=== PATIENT | male | born 1980 | race Caucasian/White ===

== ENCOUNTER 2018-01-24 10:22 | Observation (INO) | payer BC, OTHER ==
[2018-01-24] MEDS ORDERED: Aspirin 81 MG Tab.Chew PO ONE (10:26)
[2018-01-24] MEDS ORDERED: Nitroglycerin 0.4 MG Tab.SL SL PRN (10:26)
--- NOTE | 2018-01-24 10:33 | EDM.PDOC ---
ED HPI GENERAL MEDICAL PROBLEM - General Chief Complaint: Chest Pain Stated Complaint: CHEST PAIN Time Seen by Provider: 01/24/18 10:33 Source of Information: Reports: Patient History Limitations: Reports: No Limitations - History of Present Illness INITIAL COMMENTS - FREE TEXT/NARRATIVE: HISTORY AND PHYSICAL: History of present illness: Patient is a 37-year-old male who presents to the emergency room today with complaints of midsternal chest pain 2 days. He states that nothing improves or makes the pain worse. He does state that it is intermittent and describes it as a sharp pain. Has had some intermittent shortness of breath but states he has been getting over a cold. Has no personal history of heart disease. No family history of heart disease. He denies any fever, chills, abdominal pain, nausea, vomiting, diarrhea or constipation. Review of systems: As per history of present illness and below otherwise all systems reviewed and negative. Past medical history: As per history of present illness and as reviewed below otherwise noncontributory. Surgical history: As per history of present illness and as reviewed below otherwise noncontributory. Social history: No reported history of drug or alcohol abuse. Family history: As per history of present illness and as reviewed below otherwise noncontributory. Physical exam: Gen.: Well-developed and well-nourished 37-year-old male. Alert and oriented. Nontoxic appearing and in no acute distress. HEENT: Atraumatic, normocephalic, pupils reactive, negative for conjunctival pallor or scleral icterus, mucous membranes moist, throat clear, neck supple, nontender, trachea midline. Lungs: Clear to auscultation, breath sounds equal bilaterally, chest nontender. Heart: S1S2, regular rate and rhythm Abdomen: Soft, nondistended, obese, nontender. Negative for masses or hepatosplenomegaly. Negative for costovertebral tenderness. Pelvis: Stable nontender. Genitourinary: Deferred. Rectal: Deferred. Extremities: Atraumatic, negative for cords or calf pain. Neurovascular unremarkable. Neuro: Awake, alert, oriented. Cranial nerves II through XII unremarkable. Cerebellum unremarkable. Motor and sensory unremarkable throughout. Exam nonfocal. Patient reports that he is currently pain-free. Vital signs are stable and have been reviewed by me. Cardiac workup is in progress. All labs are normal. EKG is NSR. Chest x-ray shows no signs of pneumonia or infiltrate. Patient was offered admission which she is agreeable to. The hospitalist was consulted on this case. He will be admitted for chest pain rule out [place], on telemetry. Diagnostics: CBC, CMP, troponin, EKG, one view chest Therapeutics: Aspirin, nitroglycerin Impression: Chest Pain Plan: Observation admission to [facility] with telemetry Definitive disposition and diagnosis as appropriate pending reevaluation and review of above. Mid-Sternal Chest Pain Score (Numeric/FACES): 2 Middle Chest Pain Score (Numeric/FACES): 0 - Related Data Allergies Allergy/AdvReac Type Severity Reaction Status Date / Time No Known Allergies Allergy Verified 01/24/18 10:45 Home Meds: Home Meds Albuterol [Proventil HFA] 2 puff INH Q4H PRN 04/13/16 [History] FLUoxetine HCl [Fluoxetine] 20 mg PO QAM 05/24/16 [History] Fluticasone/Vilanterol [Breo Ellipta 100-25 MCG Inhalation Kit] 1 inhalation INH QAM 05/24/16 [History] Past Medical History HEENT History: Reports: None Cardiovascular History: Reports: None Respiratory History: Reports: Asthma Gastrointestinal History: Reports: None Genitourinary History: Reports: None Musculoskeletal History: Reports: None Neurological History: Reports: None Psychiatric History: Reports: None Endocrine/Metabolic History: Reports: Obesity/BMI 30+ Hematologic History: Reports: None Immunologic History: Reports: None Oncologic (Cancer) History: Reports: None Dermatologic History: Reports: None - Infectious Disease History Infectious Disease History: Reports: Chicken Pox - Past Surgical History HEENT Surgical History: Reports: Naso-Sinus Surgery Social & Family History - Family History Family Medical History: Noncontributory - Tobacco Use Smoking Status *Q: Never Smoker Second Hand Smoke Exposure: No - Alcohol Use Days Per Week of Alcohol Use: 1 Number of Drinks Per Day: 1 Total Drinks Per Week: 1 - Recreational Drug Use Recreational Drug Use: No ED ROS GENERAL - Review of Systems Review Of Systems: ROS reveals no pertinent complaints other than HPI. ED EXAM, GENERAL - Physical Exam Exam: See Below (See dictation) EKG INTERPRETATION EKG Date: 01/24/18 Time: 10:32 Rhythm: NSR Rate (Beats/Min): 66 Comparison: NA - No Prior EKG Course - Vital Signs Last Recorded V/S: Last Vital Signs Temp 96.8 F 01/24/18 13:35 Pulse 66 01/24/18 13:35 Resp 16 01/24/18 13:35 BP 142/75 H 01/24/18 13:35 Pulse Ox 97 01/24/18 13:35 - Orders/Labs/Meds Orders: Active Orders 24 hr Category Date Time Status Admission Status [Patient Status] [ADT] Stat ADT 01/24/18 12:17 Active Nitroglycerin [Nitrostat] Med 01/24/18 10:26 Active 0.4 mg SL Q5M PRN Medication Orders Acetaminophen (Tylenol) 650 mg PO Q4H PRN PRN Reason: Pain (mild 1-3) Albuterol (Ventolin Hfa) 0 gm INH Q4H PRN PRN Reason: Shortness of Breath Aspirin (Aspirin) 81 mg PO DAILY [facility] Enoxaparin Sodium (Lovenox) 40 mg SUBCUT Q24H KEN Last Admin: 01/24/18 14:17 Dose: 40 mg Fluoxetine HCl (Prozac) 10 mg PO DAILY [facility] Nitroglycerin (Nitrostat) 0.4 mg SL Q5M PRN PRN Reason: Chest Pain Last Admin: 01/24/18 10:36 Dose: 0.4 mg Ondansetron HCl (Zofran) 4 mg IVPUSH Q4H PRN PRN Reason: Nausea Fluticasone/ (Vilanterol Inhaler) 1 each INH DAILY [facility] Sodium Chloride (Saline Flush) 2.5 ml FLUSH ASDIRECTED PRN PRN Reason: Keep Vein Open Labs: Laboratory Tests 01/24/18 01/24/18 01/24/18 Range/Units 10:30 10:30 10:30 WBC 7.53 (4.0-11.0) K/uL RBC 5.01 (4.50-5.90) M/uL Hgb 13.6 (13.0-17.0) g/dL Hct 42.8 (38.0-50.0) % MCV 85.4 (80.0-98.0) fL MCH 27.1 (27.0-32.0) pg MCHC 31.8 (31.0-37.0) g/dL RDW Std Deviation 43.4 (28.0-62.0) fl RDW Coeff of Johana 14 (11.0-15.0) % Plt Count 255 (150-400) K/uL MPV 9.50 (7.40-12.00) fL Neut % (Auto) 66.3 (48.0-80.0) % Lymph % (Auto) 17.4 (16.0-40.0) % Monona % (Auto) 10.0 (0.0-15.0) % Eos % (Auto) 5.8 (0.0-7.0) % Baso % (Auto) 0.5 (0.0-1.5) % Neut # (Auto) 5.0 (1.4-5.7) K/uL Lymph # (Auto) 1.3 (0.6-2.4) K/uL Monona # (Auto) 0.8 (0.0-0.8) K/uL Eos # (Auto) 0.4 (0.0-0.7) K/uL Baso # (Auto) 0.0 (0.0-0.1) K/uL Nucleated RBC % 0.0 /100WBC Nucleated RBCs # 0 K/uL Sodium 139 (136-148) mmol/L Potassium 4.0 (3.5-5.1) mmol/L Chloride 103 (98-107) mmol/L Carbon Dioxide 28.8 (21.0-32.0) mmol/L BUN 16 (7.0-18.0) mg/dL Creatinine 0.8 (0.8-1.3) mg/dL Est Cr Clr Drug Dosing 123.97 mL/min Estimated GFR (MDRD) > 60.0 ml/min Glucose 88 (74-106) mg/dL Hemoglobin A1c (4.5-6.2) % Calcium 9.2 (8.5-10.1) mg/dL Magnesium (1.5-2.0) mg/dL Total Bilirubin 0.3 (0.2-1.0) mg/dL AST 29 (15-37) IU/L ALT 34 (14-63) IU/L Alkaline Phosphatase 104 (46-116) U/L Troponin I < 0.050 (0.000-0.056) ng/mL Total Protein 8.0 (6.4-8.2) g/dL Albumin 3.9 (3.4-5.0) g/dL Globulin 4.1 H (2.0-3.5) g/dL Albumin/Globulin Ratio 1.0 L (1.3-2.8) Triglycerides 80 (0-200) mg/dL Cholesterol 185 (50-200) mg/dL LDL Cholesterol, Calc 115 (60-180) mg/dL VLDL Cholesterol 16 (5-55) mg/dL HDL Cholesterol 54 (40-60) mg/dL Cholesterol/HDL Ratio 3.4 (3.3-6.0) Free T4 (0.76-1.46) ng/dL TSH 3rd Generation (0.36-3.74) uIU/mL 01/24/18 01/24/18 01/24/18 Range/Units 10:30 10:30 10:30 WBC (4.0-11.0) K/uL RBC (4.50-5.90) M/uL Hgb (13.0-17.0) g/dL Hct (38.0-50.0) % MCV (80.0-98.0) fL MCH (27.0-32.0) pg MCHC (31.0-37.0) g/dL RDW Std Deviation (28.0-62.0) fl RDW Coeff of Johana (11.0-15.0) % Plt Count (150-400) K/uL MPV (7.40-12.00) fL Neut % (Auto) (48.0-80.0) % Lymph % (Auto) (16.0-40.0) % Monona % (Auto) (0.0-15.0) % Eos % (Auto) (0.0-7.0) % Baso % (Auto) (0.0-1.5) % Neut # (Auto) (1.4-5.7) K/uL Lymph # (Auto) (0.6-2.4) K/uL Monona # (Auto) (0.0-0.8) K/uL Eos # (Auto) (0.0-0.7) K/uL Baso # (Auto) (0.0-0.1) K/uL Nucleated RBC % /100WBC Nucleated RBCs # K/uL Sodium (136-148) mmol/L Potassium (3.5-5.1) mmol/L Chloride (98-107) mmol/L Carbon Dioxide (21.0-32.0) mmol/L BUN (7.0-18.0) mg/dL Creatinine (0.8-1.3) mg/dL Est Cr Clr Drug Dosing mL/min Estimated GFR (MDRD) ml/min Glucose (74-106) mg/dL Hemoglobin A1c 5.6 (4.5-6.2) % Calcium (8.5-10.1) mg/dL Magnesium 1.5 (1.5-2.0) mg/dL Total Bilirubin (0.2-1.0) mg/dL AST (15-37) IU/L ALT (14-63) IU/L Alkaline Phosphatase (46-116) U/L Troponin I (0.000-0.056) ng/mL Total Protein (6.4-8.2) g/dL Albumin (3.4-5.0) g/dL Globulin (2.0-3.5) g/dL Albumin/Globulin Ratio (1.3-2.8) Triglycerides (0-200) mg/dL Cholesterol (50-200) mg/dL LDL Cholesterol, Calc (60-180) mg/dL VLDL Cholesterol (5-55) mg/dL HDL Cholesterol (40-60) mg/dL Cholesterol/HDL Ratio (3.3-6.0) Free T4 (0.76-1.46) ng/dL TSH 3rd Generation 5.91 H (0.36-3.74) uIU/mL 01/24/18 Range/Units 10:30 WBC (4.0-11.0) K/uL RBC (4.50-5.90) M/uL Hgb (13.0-17.0) g/dL Hct (38.0-50.0) % MCV (80.0-98.0) fL MCH (27.0-32.0) pg MCHC (31.0-37.0) g/dL RDW Std Deviation (28.0-62.0) fl RDW Coeff of Johana (11.0-15.0) % Plt Count (150-400) K/uL MPV (7.40-12.00) fL Neut % (Auto) (48.0-80.0) % Lymph % (Auto) (16.0-40.0) % Mon[place] % (Auto) (0.0-15.0) % Eos % (Auto) (0.0-7.0) % Baso % (Auto) (0.0-1.5) % Neut # (Auto) (1.4-5.7) K/uL Lymph # (Auto) (0.6-2.4) K/uL Monona # (Auto) (0.0-0.8) K/uL Eos # (Auto) (0.0-0.7) K/uL Baso # (Auto) (0.0-0.1) K/uL Nucleated RBC % /100WBC Nucleated RBCs # K/uL Sodium (136-148) mmol/L Potassium (3.5-5.1) mmol/L Chloride (98-107) mmol/L Carbon Dioxide (21.0-32.0) mmol/L BUN (7.0-18.0) mg/dL Creatinine (0.8-1.3) mg/dL Est Cr Clr Drug Dosing mL/min Estimated GFR (MDRD) ml/min Glucose (74-106) mg/dL Hemoglobin A1c (4.5-6.2) % Calcium (8.5-10.1) mg/dL Magnesium (1.5-2.0) mg/dL Total Bilirubin (0.2-1.0) mg/dL AST (15-37) IU/L ALT (14-63) IU/L Alkaline Phosphatase (46-116) U/L Troponin I (0.000-0.056) ng/mL Total Protein (6.4-8.2) g/dL Albumin (3.4-5.0) g/dL Globulin (2.0-3.5) g/dL Albumin/Globulin Ratio (1.3-2.8) Triglycerides (0-200) mg/dL Cholesterol (50-200) mg/dL LDL Cholesterol, Calc (60-180) mg/dL VLDL Cholesterol (5-55) mg/dL HDL Cholesterol (40-60) mg/dL Cholesterol/HDL Ratio (3.3-6.0) Free T4 0.93 (0.76-1.46) ng/dL TSH 3rd Generation (0.36-3.74) uIU/mL Meds: Medications Generic Name Dose Route Start Last Admin Trade Name Freq PRN Reason Stop Dose Admin Acetaminophen 650 mg 01/24/18 13:26 Tylenol PO Q4H PRN Pain (mild 1-3) Albuterol 0 gm 01/24/18 13:28 Ventolin Hfa INH Q4H PRN Shortness of Breath Aspirin 81 mg 01/25/18 09:00 Aspirin PO DAILY KEN Enoxaparin Sodium 40 mg 01/24/18 14:00 01/24/18 14:17 Lovenox SUBCUT 40 mg Q24H KEN Administration Fluoxetine HCl 10 mg 01/25/18 09:00 Prozac PO DAILY KEN Nitroglycerin 0.4 mg 01/24/18 10:26 01/24/18 10:36 Nitrostat SL 0.4 mg Q5M PRN Administration Chest Pain Ondansetron HCl 4 mg 01/24/18 13:26 Zofran IVPUSH Q4H PRN Nausea Fluticasone/ 1 each 01/25/18 09:00 Vilanterol Inhaler INH DAILY KEN Sodium Chloride 2.5 ml 01/24/18 13:26 Saline Flush FLUSH ASDIRECTED PRN Keep Vein Open Discontinued Medications Generic Name Dose Route Start Last Admin Trade Name Freq PRN Reason Stop Dose Admin Aspirin 324 mg 01/24/18 10:26 01/24/18 10:34 Aspirin PO 01/24/18 10:27 324 mg ONETIME ONE Administration Departure - Departure Time of Disposition: 13:50 Disposition: Refer to Observation Clinical Impression: Chest pain, rule out acute myocardial infarction - My Orders Last 24 Hours: My Active Orders 01/24/18 10:26 Nitroglycerin [Nitrostat] 0.4 mg SL Q5M PRN 01/24/18 12:17 Admission Status [Patient Status] [ADT] Stat - Assessment/Plan Last 24 Hours: My Active Orders 01/24/18 10:26 Nitroglycerin [Nitrostat] 0.4 mg SL Q5M PRN 01/24/18 12:17 Admission Status [Patient Status] [ADT] Stat
[2018-01-24 11:26] LABS: CHLORIDE,CL 103 mmol/L (98-107); SODIUM,NA 139 mmol/L (136-148)
--- NOTE | 2018-01-24 11:26 | CR ---
EXAMINATION: Portable chest radiograph. HISTORY: Chest pain. FINDINGS: The trachea is midline. The cardiomediastinal silhouette is within normal limits. No pulmonary infilt rates, effusions or pneumothorax. Osseous structures appear unremarkable. IMPRESSION: No acute cardiopulmonary process.
--- NOTE | 2018-01-24 13:25 | PCM.HP ---
H&P History of Present Illness - General Date of Service: 01/24/18 Admit Problem/Dx: Chest pain Source of Information: Patient History Limitations: Reports: No Limitations - History of Present Illness Initial Comments - Free Text/Narative: This 37 yao old male with pmh of obesity, asthma, and anxiety presented to the ED today with concerns of 2 days of intermittent midsternal chest pain which is sharp, achy in nature, "like a pulled muscle" with associated dyspnea and heart rate alerts on his iWatch with rates in 140s and some flushing. He reports at these times he is just sitting in his chair with no activity. He has not noticed any of these symptoms with activity. Since the update to his watch with the high/low heart rate alert came out in November he has had 6-7 similar episodes. Nothing helps the pain and nothing seems to make it worse. He denies nausea, vomiting, abdominal pain or urinary symptoms. No black or bloody BMs, no edema. Is having so sinus congestion and rhinitis which has started that last few days. "I feel like I am getting a cold." No cough or fevers or sore throat. He has no family history of CAD or arrhythmias that he is aware of and no known personal history of cardiac disease. He quit chewing and smoking approximately 4 years ago, rarely uses alcohol and no recreational drug use. He has been attempting to lose weight and has lost approximately 10 pounds in the last 1-2 months. He was congratulated on this. In the ED labwork all WNL. A1c 5.6 and Lipid panel revealed Triglycerides 80, Total 185, LDL 115, and HDL 56. CXR negative. EKG SR rates 66 with no acute ischemic changes. He was treated with 1 dose nitro and ASA 324 mg in the ED. Currently chest pain free. He will be admitted for chest pain rule out ACS. PCP, Dr Montenegro. Mid-Sternal Chest Pain Score (Numeric/FACES): 2 Middle Chest Pain Score (Numeric/FACES): 0 - Related Data Allergies/Adverse Reactions: Allergies Allergy/AdvReac Type Severity Reaction Status Date / Time No Known Allergies Allergy Verified 01/24/18 10:45 Home Medications: Home Meds Albuterol [Proventil HFA] 2 puff INH Q4H PRN 04/13/16 [History] FLUoxetine HCl [Fluoxetine] 20 mg PO QAM 05/24/16 [History] Fluticasone/Vilanterol [Breo Ellipta 100-25 MCG Inhalation Kit] 1 inhalation INH QAM 05/24/16 [History] Past Medical History HEENT History: Reports: None Cardiovascular History: Reports: None. Denies: Afib, Blood Clots/VTE/DVT, CAD, High Cholesterol, Hypertension, [place] Respiratory History: Reports: Asthma. Denies: Sleep Apnea Gastrointestinal History: Reports: GERD (intermittent, has improved recently.). Denies: GI Bleed Genitourinary History: Reports: None. Denies: Chronic Renal Insuffiency Musculoskeletal History: Reports: None Neurological History: Reports: None. Denies: CVA, TIA Psychiatric History: Reports: Anxiety Endocrine/Metabolic History: Reports: Obesity/BMI 30+. Denies: Diabetes, Type II, Hyperthyroidism, Hypothyroidism Hematologic History: Reports: None Immunologic History: Reports: None Oncologic (Cancer) History: Reports: None Dermatologic History: Reports: None - Infectious Disease History Infectious Disease History: Reports: Chicken Pox - Past Surgical History HEENT Surgical History: Reports: Naso-Sinus Surgery Social & Family History - Family History Family Medical History: Noncontributory - Tobacco Use Smoking Status *Q: Former Smoker Tobacco Use Within Last Twelve Months: Cigarettes, Smokeless Tobacco Used Tobacco, but Quit: Yes Second Hand Smoke Exposure: No - Alcohol Use Days Per Week of Alcohol Use: 1 Number of Drinks Per Day: 1 Total Drinks Per Week: 1 Alcohol Use Frequency: Rarely, Socially - Recreational Drug Use Recreational Drug Use: No - Living Situation & Occupation Living situation: Reports: Occupation: Employed H&P Review of Systems - Review of Systems: Review Of Systems: See Below General: Reports: Fatigue. Denies: Fever, Chills, Decreased Appetite HEENT: Reports: Rhinitis, Sinus Congestion. Denies: Headaches, Post Nasal Drip , Vertigo, Visual Changes Pulmonary: Reports: No Symptoms. Denies: Shortness of Breath, Wheezing, Cough, Sputum Cardiovascular: Reports: Chest Pain (with flushing intermittently), Palpitations. Denies: Edema Gastrointestinal: Reports: No Symptoms. Denies: Abdominal Pain, Black Stool, Bloody Stool, Nausea, Vomiting Genitourinary: Reports: No Symptoms. Denies: Dysuria, Frequency, Burning, Pain Musculoskeletal: Reports: No Symptoms. Denies: Neck Pain, Back Pain Psychiatric: Reports: No Symptoms. Denies: Confusion Neurological: Reports: No Symptoms. Denies: Confusion Immunologic: Reports: No Symptoms Exam - Exam Exam: See Below - Vital Signs Vital Signs: Last Vital Signs Temp 97.6 F 01/24/18 10:39 Pulse 68 01/24/18 13:07 Resp 16 01/24/18 13:07 BP 144/92 H 01/24/18 13:07 Pulse Ox 98 01/24/18 13:07 Weight: 160.118 kg - Exam Quality Assessment: DVT Prophylaxis General: Alert, Oriented, Cooperative, Mild Distress HEENT: Conjunctiva Clear, Normal Nasal Septum, Pupils Reactive, Rhinitis Lungs: Clear to Auscultation, Normal Respiratory Effort Cardiovascular: Regular Rate, Regular Rhythm, Normal S1, Normal S2 GI/Abdominal Exam: Normal Bowel Sounds, Soft, Non-Tender, No Organomegaly, No Distention, No Abnormal Bruit, No Mass, Pelvis Stable, Other (obese abdomen.) Extremities: Normal Inspection, Normal Range of Motion, Non-Tender, No Pedal Edema, Normal Capillary Refill Neuro Extensive - Mental Status: Alert, Oriented x3, Normal Mood/Affect, Normal Cognition Neuro Extensive - Motor, Sensory, Reflexes: CN II-XII Intact, Normal Gait Psychiatric: Alert, Normal Affect, Normal Mood - Patient Data Result Diagrams: 01/24/18 10:30 01/24/18 10:30 EKG INTERPRETATION EKG Date: 01/24/18 Rhythm: NSR Rate (Beats/Min): 66 P-Wave: Present QRS: Normal ST-T: Normal QT: Normal Comparison: NA - No Prior EKG *Q Meaningful Use (ADM) - VTE *Q VTE Criteria *Q: - VTE Risk Assess *Q Each Risk Factor Represents 1 Point: Obesity ( BMI > 25 kg/m2) Total Score 1 Point Risk Factors: 1 Each Risk Factor Represents 2 Points: None Total Score 2 Point Risk Factors: 0 Each Risk Factor Represents 3 Points: None Total Score 3 Point Risk Factors: 0 Each Risk Factor Represents 5 Points: None Total Score 5 Point Risk Factors: 0 Venous Thromboembolism Risk Factor Score *Q: 1 - Stroke *Q Stroke Criteria *Q: - AMI *Q AMI Criteria *Q: - Problem List (1) Chest pain SNOMED Code(s): 86644204 ICD Code: R07.9 - CHEST PAIN, UNSPECIFIED Status: Acute Current Visit: Yes Qualifiers: Chest pain type: unspecified Qualified Code(s): R07.9 - Chest pain, unspecified (2) Palpitations SNOMED Code(s): 63907103 ICD Code: R00.2 - PALPITATIONS Status: Acute Current Visit: Yes (3) Morbid obesity with BMI of 50.0-59.9, adult SNOMED Code(s): 336565288 ICD Code: E66.01 - MORBID (SEVERE) OBESITY DUE TO EXCESS CALORIES; Z68.43 - BODY MASS INDEX (BMI) 50-59.9 , ADULT Status: Chronic Current Visit: Yes (4) Asthma SNOMED Code(s): 556611815 ICD Code: J45.909 - UNSPECIFIED ASTHMA, UNCOMPLICATED Status: Chronic Current Visit: Yes Problem List Initiated/Reviewed/Updated: Yes Orders Last 24hrs: Medication Orders Nitroglycerin (Nitrostat) 0.4 mg SL Q5M PRN PRN Reason: Chest Pain Last Admin: 01/24/18 10:36 Dose: 0.4 mg Assessment/Plan Comment:: This 37 year old male admitted with chest pain and palpitations 1. Chest pain: Will monitor on telemetry and trend troponins to rule out ACS. Currently chest pain free. Lipid panel and A1c WNL. BP elevated 140/80s. will monitor. Not currently treated. 2. Palpitations: Noted on iWatch. Again monitor on telemetry, encouraged to contact nursing if watch shows elevation or he starts having symptoms. ICU notified of possible HR elevations intermittently. Will check TSH and Magnesium. If no events noted here on telemetry may need to order event monitor and have patient follow up with PCP. 3. Asthma: Stable. Continue Breo. 4. Anxiety: Stable recently. Continue Prozac. VTE prophylaxis: Lovenox. Dispo; 1-2 days
[2018-01-24] MEDS ORDERED: Acetaminophen 325 MG Tab PO PRN (13:26)
[2018-01-24] MEDS ORDERED: Ondansetron 4 MG/2 ML SDV IVPUSH PRN (13:26)
[2018-01-24] MEDS ORDERED: Sodium Chloride 0.9% 2.5 ML Syringe FLUSH PRN (13:26)
[2018-01-24] MEDS ORDERED: Albuterol 8 GM Inhaler INH PRN (13:28)
[2018-01-24] MEDS ORDERED: Enoxaparin 40 MG/0.4 ML Syringe SUBCUT SCH (14:00)
[2018-01-25] MEDS ORDERED: Aspirin 81 MG Tab.Chew PO SCH (09:00)
[2018-01-25] MEDS ORDERED: FLUTICASONE/VILANTEROL INHALER INH SCH (09:00)
--- NOTE | 2018-01-25 11:18 | PCM.DCSUM1 ---
Discharge Summary - Hospital Course Brief History: This 37 yao old male with pmh of obesity, asthma, and anxiety presented to the ED today with concerns of 2 days of intermittent midsternal chest pain which is sharp, achy in nature, "like a pulled muscle" with associated dyspnea and heart rate alerts on his iWatch with rates in 140s and some flushing. He reports at these times he is just sitting in his chair with no activity. He has not noticed any of these symptoms with activity. Since the update to his watch with the high/low heart rate alert came out in November he has had 6-7 similar episodes. Nothing helps the pain and nothing seems to make it worse. He denies nausea, vomiting, abdominal pain or urinary symptoms. No black or bloody BMs, no edema. Is having so sinus congestion and rhinitis which has started that last few days. "I feel like I am getting a cold." No cough or fevers or sore throat. He has no family history of CAD or arrhythmias that he is aware of and no known personal history of cardiac disease. He quit chewing and smoking approximately 4 years ago, rarely uses alcohol and no recreational drug use. He has been attempting to lose weight and has lost approximately 10 pounds in the last 1-2 months. He was congratulated on this. In the ED labwork all WNL. A1c 5.6 and Lipid panel revealed Triglycerides 80, Total 185, LDL 115, and HDL 56. CXR negative. EKG SR rates 66 with no acute ischemic changes. He was treated with 1 dose nitro and ASA 324 mg in the ED. Currently chest pain free. He will be admitted for chest pain rule out ACS. PCP, Dr Montenegro. - Discharge Data Discharge Date: 01/25/18 Discharge Disposition: Home, Self-Care 01 Condition: Good - Discharge Diagnosis/Problem(s) (1) Chest pain SNOMED Code(s): 54892062 ICD Code: R07.9 - CHEST PAIN, UNSPECIFIED Status: Acute Current Visit: Yes Qualifiers: Chest pain type: unspecified Qualified Code(s): R07.9 - Chest pain, unspecified (2) Palpitations SNOMED Code(s): 72784666 ICD Code: R00.2 - PALPITATIONS Status: Acute Current Visit: Yes (3) Morbid obesity with BMI of 50.0-59.9, adult SNOMED Code(s): 239148701 ICD Code: E66.01 - MORBID (SEVERE) OBESITY DUE TO EXCESS CALORIES; Z68.43 - BODY MASS INDEX (BMI) 50-59.9 , ADULT Status: Chronic Current Visit: Yes (4) Asthma SNOMED Code(s): 211756789 ICD Code: J45.909 - UNSPECIFIED ASTHMA, UNCOMPLICATED Status: Chronic Current Visit: Yes - Patient Instructions Diet: Regular Diet as Tolerated Activity: As Tolerated, No Strenuous Activities, Rest and Relax Today Driving: May Drive Today Showering/Bathing: May Shower Notify Provider of: Fever Other/Special Instructions: Stress test to be arranged. - Discharge Plan Home Medications: Home Meds Albuterol [Proventil HFA] 2 puff INH Q4H PRN 04/13/16 [History] FLUoxetine HCl [Fluoxetine] 20 mg PO QAM 05/24/16 [History] Fluticasone/Vilanterol [Breo Ellipta 100-25 MCG Inhalation Kit] 1 inhalation INH QAM 05/24/16 [History] Patient Handouts: Nonspecific Chest Pain, [id number] Referrals: Justino Montenegro MD [Physician] - 02/09/18 8:30 am - Discharge Summary/Plan Comment DC Time >30 min.: No Discharge Summary/Plan Comment: Discharge Diagnoses: Atypical chest pain Obesity Asthma Jeb was admitted and ruled out for ACS. Troponins negative and telemetry remained normal throughout the night. No acute ischemic changes noted. Has intermittent R sided chest pain with coughing or sneezing, likely more musculoskeletal in nature. Patient very worried about cardiac disease due to a close friend abruptly dying last year. Will arrange outpatient stress test. Lipid panel and A1c WNL. Blood pressure stable. No tachycardia noted on Iwatch or telemetry. Unable to place event monitor today due to availability. Did speak with Dr Montengero regarding concern and he will follow up with this. Follow up with Dr Montenegro arranged. He is to return to ED or clinic if concerns should arise. - General Info Date of Service: 01/25/18 Admission Dx/Problem (Free Text: Chest pain Subjective Update: No chest pain this morning, small amount when sneezing or coughing. No SOB. Feeling stuffy "I'm getting a cold". No leukocytosis noted and CXR negative. No palpitations overnight. Functional Status: Reports: Pain Controlled, Tolerating Diet, Ambulating, Urinating - Review of Systems General: Reports: No Symptoms. Denies: Fever, Fatigue HEENT: Reports: Sinus Congestion, Rhinitis. Denies: Headaches, Visual Changes Pulmonary: Reports: No Symptoms. Denies: Shortness of Breath, Cough, Sputum Cardiovascular: Reports: No Symptoms. Denies: Chest Pain, Orthopnea, Edema Gastrointestinal: Reports: No Symptoms. Denies: Abdominal Pain, Nausea, Vomiting Genitourinary: Reports: No Symptoms. Denies: Dysuria, Frequency, Burning, Pain Musculoskeletal: Reports: No Symptoms Neurological: Reports: No Symptoms Psychiatric: Reports: No Symptoms - Patient Data Vitals - Most Recent: Last Vital Signs Temp 97.7 F 01/25/18 08:32 Pulse 64 01/25/18 08:32 Resp 16 01/25/18 08:32 BP 122/64 01/25/18 08:32 Pulse Ox 94 L 01/25/18 08:32 Weight - Most Recent: 160.118 kg I&O - Last 24 hours: Intake & Output 01/24/18 01/25/18 01/25/18 22:59 06:59 14:59 Intake Total 118 550 Output Total 600 1050 Balance -482 -500 Lab Results - Last 24 hrs: Laboratory Results - last 24 hr 01/24/18 01/24/18 Range/Units 16:30 22:35 Troponin I < 0.050 < 0.050 (0.000-0.056) ng/mL Med Orders - Current: Current Medications Acetaminophen (Tylenol) 650 mg PO Q4H PRN PRN Reason: Pain (mild 1-3) Albuterol (Ventolin Hfa) 0 gm INH Q4H PRN PRN Reason: Shortness of Breath Aspirin (Aspirin) 81 mg PO DAILY [facility] Last Admin: 01/25/18 09:48 Dose: 81 mg Enoxaparin Sodium (Lovenox) 40 mg SUBCUT Q24H [facility] Last Admin: 01/24/18 14:17 Dose: 40 mg Fluoxetine HCl (Prozac) 10 mg PO DAILY [facility] Last Admin: 01/25/18 09:49 Dose: Not Given Nitroglycerin (Nitrostat) 0.4 mg SL Q5M PRN PRN Reason: Chest Pain Last Admin: 01/24/18 10:36 Dose: 0.4 mg Ondansetron HCl (Zofran) 4 mg IVPUSH Q4H PRN PRN Reason: Nausea Fluticasone/ (Vilanterol Inhaler) 1 each INH DAILY [facility] Last Admin: 01/25/18 09:49 Dose: Not Given Sodium Chloride (Saline Flush) 2.5 ml FLUSH ASDIRECTED PRN PRN Reason: Keep Vein Open Last Admin: 01/25/18 09:50 Dose: 2.5 ml Discontinued Medications Aspirin (Aspirin) 324 mg PO ONETIME ONE Stop: 01/24/18 10:27 Last Admin: 01/24/18 10:34 Dose: 324 mg - Exam General: Reports: Alert, Oriented, Cooperative, No Acute Distress HEENT: Reports: Pupils Equal, Mucous Membr. Moist/[place], Other (sinus congestion noted.) Neck: Reports: Supple. Denies: Lymphadenopathy Lungs: Reports: Clear to Auscultation, Normal Respiratory Effort Cardiovascular: Reports: Regular Rate, Regular Rhythm GI/Abdominal Exam: Normal Bowel Sounds, Soft, Non-Tender, No Organomegaly, No Distention, No Abnormal Bruit, No Mass, Pelvis Stable Extremities: Normal Inspection, Normal Range of Motion, Non-Tender, No Pedal Edema, Normal Capillary Refill Neurological: Reports: No New Focal Deficit Psy/Mental Status: Reports: Alert, Normal Affect, Normal Mood *Q Meaningful Use (DIS) - VTE *Q VTE Criteria *Q: - Stroke *Q Stroke Criteria *Q: - AMI *Q AMI Criteria *Q:
[2018-01-25 11:34] VITALS: BP 131/71
== END 2018-01-25 13:45 | disposition home or self-care (01) ==
LOC: MW.ED 10:22 → MW.MS 13:20
PROVIDERS: ADMIT Family Medicine; ATTEND Family Medicine
DX: R07.89 Other chest pain (principal); R00.2 Palpitations; J45.909 Unspecified asthma, uncomplicated; F41.9 Anxiety disorder, unspecified; E66.01 Morbid (severe) obesity due to excess calories; K21.9 Gastro-esophageal reflux disease without esophagitis; Z79.51 Long term (current) use of inhaled steroids; Z87.891 Personal history of nicotine dependence; Z68.43 Body mass index [BMI] 50.0-59.9, adult
CPT/HCPCS: 36415; 71045; 80053; 80061; 83036; 83735; 84439; 84443; 84484; 85025; 93005; 96372; 99285; A9270; G0378; J1650; 99283

== ENCOUNTER 2020-02-11 20:16 | Emergency (ER) | payer BC, OTHER ==
[2020-02-11] MEDS ORDERED: Morphine 4 MG/ML Syringe IVPUSH ONE (20:32)
[2020-02-11] MEDS ORDERED: Ketorolac 30 MG/ML SDV IVPUSH ONE (20:32)
--- NOTE | 2020-02-11 20:39 | EDM.PDOC ---
ED HPI GENERAL MEDICAL PROBLEM - General Chief Complaint: Abdominal Pain Time Seen by Provider: 02/11/20 20:30 Source of Information: Reports: Patient - History of Present Illness INITIAL COMMENTS - FREE TEXT/NARRATIVE: The patient is a 39-year-old male who presents to the ER secondary to the complaint of right upper quadrant abdominal pain. He states that this started yesterday and was kind of an ache in the epigastric region and has mainly migrated to the right upper quadrant. No fevers or chills, no nausea or vomiting, no diarrhea. He did take some Advil yesterday but he does not think that it helped that much. He is not sure if anything makes it better or worse, he definitely cannot see any association with food. He denies any chest pain, no shortness of breath, no hemoptysis, no dyspnea with exertion, no back pain, no lower abdominal pain or any other acute complaints. abdomen Pain Score (Numeric/FACES): 6 - Related Data Allergies Allergy/AdvReac Type Severity Reaction Status Date / Time No Known Allergies Allergy Verified 02/11/20 20:24 Home Meds: Home Meds Albuterol [Proventil HFA] 2 puff INH Q4H PRN 04/13/16 [History] FLUoxetine HCl [Fluoxetine] 40 mg PO QAM 05/24/16 [History] Fluticasone/Vilanterol [Breo Ellipta 100-25 MCG Inhalation Kit] 1 inhalation INH QAM 05/24/16 [History] Past Medical History HEENT History: Reports: None Cardiovascular History: Reports: None Respiratory History: Reports: Asthma Gastrointestinal History: Reports: None Genitourinary History: Reports: None Musculoskeletal History: Reports: None Neurological History: Reports: None Psychiatric History: Reports: Anxiety, Depression Endocrine/Metabolic History: Reports: Obesity/BMI 30+ Hematologic History: Reports: None Immunologic History: Reports: None Oncologic (Cancer) History: Reports: None Dermatologic History: Reports: None - Infectious Disease History Infectious Disease History: Reports: Chicken Pox - Past Surgical History Head Surgeries/Procedures: Reports: None HEENT Surgical History: Reports: Naso-Sinus Surgery Respiratory Surgical History: Reports: None Endocrine Surgical History: Reports: None Social & Family History - Family History Family Medical History: Noncontributory - Tobacco Use Smoking Status *Q: Never Smoker Second Hand Smoke Exposure: No - Caffeine Use Caffeine Use: Reports: Coffee, Soda - Recreational Drug Use Recreational Drug Use: No - Living Situation & Occupation Living situation: Reports: Occupation: Employed ED ROS GENERAL - Review of Systems Review Of Systems: See Below (Positive for abdominal pain, negative for fevers, negative for chills, negative for nausea vomiting or diarrhea, negative for shortness of breath, all other Positives and pertinent negatives as per HPI. All other pertinent systems were reviewed and are negative) ED EXAM, GI/ABD - Physical Exam Exam: See Below Text/Narrative:: Constitutional: No acute distress, Non-toxic appearance, obese HEENT.: Normocephalic, Atraumatic, PERRL, EOMI, External ears are atraumatic, nares are patent without epistaxis Neck: Normal range of motion, Trachea Midline, No stridor Respiratory.: No respiratory distress, No tachypnea, Lungs Clear to Auscultation bilaterally without wheezes, rales, or rhonchi Cardiovascular.: Regular rate and Rhythm without murmurs, rubs, or gallops, good peripheral perfusion GI: Abdominal exam limited secondary to obesity, subjective right upper quadrant tenderness Genital Urinary: Deferred Musculoskeletal: Good range of motion. All 4 extremities present and atraumatic , no edema Back: Full Range of Motion Skin: Warm, Dry, Color is ethnicity appropriate, No acute rash. Lymphatic: No lymphadenopathy noted Neurological: Alert, Awake and oriented x 3, No focal deficits noted appreciate , GCS 15 Psych: Affect, Judgement, mood normal Course - Vital Signs Text/Narrative:: Differential diagnosis is extensive and includes ascending cholangitis, choledocholithiasis, pancreatitis, peptic ulcer disease, perforated ulcer, diverticulitis, diverticular abscess, hernia, other cardiopulmonary considerations such as right lower lobe pneumonia, pleural effusion, pulmonary infarction and pulmonary embolism and associated pathology was considered but given that the patient has no shortness of breath, no dyspnea exertion, he is not tachycardic or hypoxic, etc. I do not feel that these need to be pursued in the work-up will stay with a standard abdominal evaluation. The patient symptoms were treated with a low-dose of morphine 4 mg IV relative to his body weight along with Toradol 30 mg IV. The patient has remained comfortable and in no distress in the ER. His entire work-up including a CT scan of the abdomen and pelvis to rule out obvious surgical pathology is negative. Given the entire history and exam I feel that the patient is stable for discharge and continued outpatient work-up for his abdominal pain. Last Recorded V/S: Last Vital Signs Temp 36.2 C 02/11/20 22:14 Pulse 61 02/11/20 22:14 Resp 20 02/11/20 22:14 BP 162/82 H 02/11/20 22:14 Pulse Ox 98 02/11/20 22:14 - Orders/Labs/Meds Labs: Laboratory Tests 02/11/20 02/11/20 02/11/20 Range/Units 20:31 21:04 21:04 WBC 12.75 H (4.0-11.0) K/uL RBC 4.59 (4.50-5.90) M/uL Hgb 12.6 L (13.0-17.0) g/dL Hct 39.7 (38.0-50.0) % MCV 86.5 (80.0-98.0) fL MCH 27.5 (27.0-32.0) pg MCHC 31.7 (31.0-37.0) g/dL RDW Std Deviation 43.4 (28.0-62.0) fl RDW Coeff of Johana 14 (11.0-15.0) % Plt Count 273 (150-400) K/uL MPV 9.20 (7.40-12.00) fL Neut % (Auto) 63.0 (48.0-80.0) % Lymph % (Auto) 26.4 (16.0-40.0) % Falls % (Auto) 8.2 (0.0-15.0) % Eos % (Auto) 2.1 (0.0-7.0) % Baso % (Auto) 0.3 (0.0-1.5) % Neut # (Auto) 8.0 H (1.4-5.7) K/uL Lymph # (Auto) 3.4 H (0.6-2.4) K/uL Falls # (Auto) 1.1 H (0.0-0.8) K/uL Eos # (Auto) 0.3 (0.0-0.7) K/uL Baso # (Auto) 0.0 (0.0-0.1) K/uL Nucleated RBC % 0.0 /100WBC Nucleated RBCs # 0 K/uL Sodium 141 (136-148) mmol/L Potassium 4.0 (3.5-5.1) mmol/L Chloride 104 (98-107) mmol/L Carbon Dioxide 28.0 (21.0-32.0) mmol/L BUN 12 (7.0-18.0) mg/dL Creatinine 1.0 (0.8-1.3) mg/dL Est Cr Clr Drug Dosing 97.21 mL/min Estimated GFR (MDRD) > 60.0 ml/min Glucose 92 (74-106) mg/dL Calcium 8.6 (8.5-10.1) mg/dL Total Bilirubin 0.3 (0.2-1.0) mg/dL AST 21 (15-37) IU/L ALT 31 (14-63) IU/L Alkaline Phosphatase 102 (46-116) U/L Total Protein 7.5 (6.4-8.2) g/dL Albumin 3.2 L (3.4-5.0) g/dL Globulin 4.3 H (2.6-4.0) g/dL Albumin/Globulin Ratio 0.7 L (0.9-1.6) Lipase 62 L (73-393) U/L Urine Color YELLOW Urine Appearance CLEAR Urine pH 6.0 (5.0-8.0) Ur Specific [place] >= 1.030 (1.001-1.035) Urine Protein NEGATIVE (NEGATIVE) mg/dL Urine Glucose (UA) NEGATIVE (NEGATIVE) mg/dL Urine Ketones NEGATIVE (NEGATIVE) mg/dL Urine Occult Blood NEGATIVE (NEGATIVE) Urine Nitrite NEGATIVE (NEGATIVE) Urine Bilirubin NEGATIVE (NEGATIVE) Urine Urobilinogen 0.2 (<2.0) EU/dL Ur Leukocyte Esterase NEGATIVE (NEGATIVE) Meds: Medications Discontinued Medications Generic Name Dose Route Start Last Admin Trade Name Freq PRN Reason Stop Dose Admin Iopamidol 100 ml 02/11/20 21:50 02/11/20 22:14 Isovue-370 (76%) IVPUSH 02/11/20 21:51 100 ml ONETIME STA Administration Ketorolac Tromethamine 30 mg 02/11/20 20:32 02/11/20 21:11 Toradol IVPUSH 02/11/20 20:33 30 mg ONETIME ONE Administration Morphine Sulfate 4 mg 02/11/20 20:32 02/11/20 21:11 Morphine IVPUSH 02/11/20 20:33 4 mg ONETIME ONE Administration Departure - Departure Time of Disposition: 23:09 Disposition: Home, Self-Care 01 Condition: Good Clinical Impression: Abdominal pain - Discharge Information *PRESCRIPTION DRUG MONITORING PROGRAM REVIEWED*: Not Applicable *COPY OF PRESCRIPTION DRUG MONITORING REPORT IN PATIENT MARIBELL: Not Applicable Instructions: Abdominal Pain, Adult, [id number] Forms: ED Department Discharge Sepsis Event Note - Evaluation Sepsis Screening Result: No Definite Risk - Focused Exam Vital Signs: Vital Signs Temp Pulse Resp BP Pulse Ox 02/11/20 22:14 36.2 C 61 20 162/82 H 98 02/11/20 20:22 35.8 C L 63 18 144/63 H 97 Date Exam was Performed: 02/11/20 Time Exam was Performed: 23:08
[2020-02-11 21:34] LABS: BLOOD UREA NITROGEN,BUN 12 mg/dL (7.0-18.0); CHLORIDE,CL 104 mmol/L (98-107); GLUCOSE RANDOM 92 mg/dL (74-106); LIPASE 62 U/L (73-393); SODIUM,NA 141 mmol/L (136-148)
[2020-02-11] MEDS ORDERED: Iopamidol 755 Mg/ML 100 ML Bottle IVPUSH STA (21:50)
--- NOTE | 2020-02-11 22:58 | CT ---
INDICATION: Right-sided abdominal pain. CT ABDOMEN AND PELVIS WITH CONTRAST TECHNIQUE: Multidetector CT imaging was performed through the abdomen and pelvis following intravenous contrast administration using 100 mL Isovue 370. Coronal and sagittal reconstructions were generated. COMPARISON: None. FINDINGS: Lower chest: Lung bases are clear. Liver: Within normal limits. Gallbladder and bile ducts: No gallbladder wall thickening or calcified gallstones. No biliary dilation identified. Pancreas: Unremarkable. Spleen: Normal. Adrenals: No nodules or masses. Kidneys, ureters, and urinary bladder: No renal masses or hydronephrosis. Nonobstructing calcification and cortical scarring at the lower pole of the left kidney. No bladder mass or definite wall thickening. Gastrointestinal tract: Normal caliber bowel without wall thickening. The appendix is normal. Vascular structures: Normal for age. Peritoneum: No free air, abscess, or significant free fluid. Lymph nodes: No pathologically enlarged nodes identified. Reproductive organs: No pelvic masses. Bones: Normal for age. IMPRESSION: No acute abnormality identified. No cause for the patient`s symptoms is demonstrated. MILTON BRUNNER MD [employer] Dictated by Xavi Burnner MD @ 02/11/2020 10:54:51 PM Dictated by: Xavi Brunner MD @ 02/11/2020 22:56:28 (Electronically Signed)
[2020-02-11 23:21] VITALS: BP 150/79; PULSE 65
== END 2020-02-11 23:22 | disposition home or self-care (01) ==
LOC: MW.ED 20:16
DX: R10.11 Right upper quadrant pain (principal); J45.909 Unspecified asthma, uncomplicated; F41.9 Anxiety disorder, unspecified; F32.9 Major depressive disorder, single episode, unspecified; E66.9 Obesity, unspecified; Z68.43 Body mass index [BMI] 50.0-59.9, adult
CPT/HCPCS: 36415; 74177; 80053; 81003; 83690; 85025; 96374; 96375; 99284; J1885; J2270; Q9967